=== PATIENT | male | born 1985 | race Two or more races ===

== ENCOUNTER 2018-09-30 15:24 | Emergency (ER) | payer SELFPAY ==
[~2018-09-30] VITALS: Ht 172.7 cm; Wt 83.9 kg
[2018-09-30 15:41] VITALS: BP 143/96
[2018-09-30] MEDS ORDERED: NKM (15:44)
--- NOTE | 2018-09-30 15:50 | NUR ---
ED Nurse Note: patient walked into ED c/o skin rash on generalized body after an insect bite about 1 week ago. patient is alert awake x4 ambulatory, breathing unlabored and even.
--- NOTE | 2018-09-30 16:21 | Emergency Room Report ---
History of Present Illness General Chief Complaint: Skin Rash/Abscess Source: Patient Present Illness HPI Disclaimer: Please note that this report is being documented using DRAGON technology. This can lead to erroneous entry secondary to incorrect interpretation by the dictating instrument. HPI: 33-year-old otherwise healthy male presents for evaluation of rash approximately 1 week after reported spider bite. Patient states he was moving some boxes in her garage when he felt a sharp pinch below his left buttock. He is then saw a black or brown spider with reportedly a red or purple marking on the back for which she was concerned was a black . He noted worsening pruritus and pain in the area of the bite as well as some serous drainage over the next few days. He then noted skin crusting and spreading erythema. Complaining mostly of significant pruritus and dry skin in the area. There is still some tenderness underneath the left gluteal fold. He denies any fevers, vomiting, abdominal cramping, diarrhea, dysuria. States the drainage has now resolved. PMH: Denies PSH: Denies Allergies: Denies Social Hx: Regular tobacco use, occasional marijuana use, social alcohol use Allergies: Coded Allergies: No Known Allergies (Unverified , 09/30/18) Nursing Documentation-PMH Past Medical History: No Stated History Review of Systems All Other Systems: negative except mentioned in HPI Physical Exam Vital Signs Date Time Temp Pulse Resp B/P (MAP) Pulse Ox O2 Delivery O2 Flow Rate FiO2 09/30/18 15:41 97.5 94 16 143/96 (112) 97 Room Air General: Awake and alert, no acute distress HEENT: NC/AT. EOMI. Cardiovascular: RRR. S1 and S2 normal. No murmur appreciated Resp: Normal work of breathing. No cough, wheezing or crackles appreciated Abdomen: Abdomen is soft, nondistended. Nontender Skin: Very dry and crusting skin over the left buttock. No identifiable abscess or fluctuant area. No visible bite iglesias or wounds. No drainage. Mild surrounding erythema. Mild tenderness to palpation. MSK: Normal tone and bulk. Moving all extremities. No obvious deformity. Neuro: Awake and alert. Mentating appropriately. Medical Decision Making Diagnostic Impression: Primary Impression: Rash and other nonspecific skin eruption ER Course This a 33-year-old male presented for evaluation of 1 week rash over the left buttock which he believes originated from a spider bite. While I do not see an area of abscess, obvious bite iglesias or other major wound there is significant dry skin around the gluteal fold as well as multiple excoriations likely from the patient scratching over the past week. It appears to be more of an atopic dermatitis as opposed to infective processes such as cellulitis. We will treat the patient with hydrocortisone cream, Benadryl, and a short course of prednisone. He will be referred to several clinics in the area for reevaluation and possible dermatologic referral. We discussed reasons to return to the emergency department with patient and family were present at bedside. They understand and agree with this treatment plan will be discharged home. Last Vital Signs Date Time Temp Pulse Resp B/P (MAP) Pulse Ox O2 Delivery O2 Flow Rate FiO2 09/30/18 15:41 97.5 94 16 143/96 (112) 97 Room Air Disposition: HOME, SELF-CARE Condition: Stable Scripts Prednisone* (PREDNISONE*) 20 Mg Tablet 40 MG ORAL DAILY, #10 TAB Prov: Satish Mccullough MD 09/30/18 Diphenhydramine HCl (Benadryl) 25 Mg Capsule 25 MG PO TID for 5 Days, #15 CAP Prov: Satish Mccullough MD 09/30/18 Hydrocortisone 2% Cream (ANTI-ITCH 2% CREAM) Y Cr 28 GM TP BID, #28 GM Prov: Satish Mccullough MD 09/30/18 Satish Mccullough MD Sep 30, 2018 16:21
[2018-09-30] MEDS ORDERED: BENADRYL25 M3 PO (16:25)
[2018-09-30] MEDS ORDERED: PREDNISONE20 MG ORAL (16:25)
[2018-09-30] MEDS ORDERED: ANTI-ITCH28 G1 TP (16:25)
[2018-09-30 16:42] VITALS: BP 143/96
--- NOTE | 2018-09-30 16:42 | NUR ---
ER DISCHARGE NOTE: Patient is cleared to be discharged per ERMD DR BATRES, pt is aox4, on room air, with stable vital signs. pt was given dc and prescription instructions, pt was able to verbalize understanding, pt id band removed without complications. pt is able to ambulate with steady gait. pt took all belongings.
== END 2018-09-30 16:39 | disposition home or self-care (01) ==
LOC: EMR 16:30
DX: R21 Rash and other nonspecific skin eruption (principal)
CPT/HCPCS: 99282